=== PATIENT | female | born 1995 | race Two or more races ===

== ENCOUNTER 2019-03-27 13:21 | Emergency (ER) | payer MEDICAID ==
[~2019-03-27] VITALS: Ht 165.1 cm; Wt 59.9 kg
--- NOTE | 2019-03-27 13:55 | NUR ---
Vaginal bleeding x 4 days, worsening today, IV line established on RAC.
[2019-03-27] MEDS: IV NS 0.9% 1,000 ML BAG IV ONE (14:34)
[2019-03-27 14:47] LABS: BASOPHILS % (AUTO) 0.5 % (0.0-2.0); EOSINOPHILS % (AUTO) 1.3 % (0.0-6.0); HEMATOCRIT 43 % (33-45); HEMOGLOBIN 14.8 g/dL (11.5-14.8); LYMPHOCYTES # (AUTO) 1.8 /CMM (0.8-4.8); LYMPHOCYTES % (AUTO) 26.2 % (20.0-44.0); MEAN CORPUSCULAR HGB CONC 35 g/dl (31.0-36.0); MEAN CORPUSCULAR VOLUME 90 fL (82-100); MONOCYTES # (AUTO) 0.4 /CMM (0.1-1.30); MONOCYTES % (AUTO) 5.6 % (2.0-12.0); NEUTROPHILS # (AUTO) 4.6 /CMM (1.8-8.9); NEUTROPHILS % (AUTO) 66.4 % (43.0-81.0); PLATELET COUNT (AUTO) 274 /CMM (150-450); RED BLOOD CELL COUNT(AUTO) 4.75 MIL/uL (4.0-5.2)
[2019-03-27 15:06] LABS: APPEARANCE,URINE CLOUDY (CLEAR); BILIRUBIN,URINE NEGATIVE (NEGATIVE); BLOOD, URINE 3+ Ery/uL (NEGATIVE); COLOR,URINE RED (YELLOW); KETONES,URINE 1+ (NEGATIVE); LEUKOCYTE ESTERASE ,URINE 2+ (NEGATIVE); NITRITE, URINE POSITIVE (NEGATIVE); PROTEIN,URINE 3+ mg/dl (NEGATIVE); UGLUCOSE NEGATIVE (NEGATIVE)
[2019-03-27 15:22] LABS: ALBUMIN 4.1 g/dL (3.4-5.0); BILIRUBIN,DIRECT 0.1 mg/dL (0.0-0.2); BILIRUBIN,TOTAL 0.3 mg/dL (0.2-1.0); CALCIUM, SERUM 9.1 mg/dL (8.5-10.1); CREATININE 0.5 mg/dL (0.6-1.3); POTASSIUM 3.6 mmol/L (3.5-5.1); TOTAL PROTEIN, SERUM 7.5 g/dL (6.4-8.2)
[2019-03-27 15:36] LABS: RBC,URINE TOO NUMEROUS TO COUN /HPF (0-2)
[2019-03-27 15:40] LABS: BACTERIA,URINE Moderate /HPF (None Seen); SQUAMOUS EPITHELIAL CELL,UR Rare /HPF (None Seen); WBC,URINE 21-50 /HPF (0-3)
--- NOTE | 2019-03-27 15:46 | NUR ---
CALLED FOR ULTRA-SOUND TECH, PELVIC EXAM PER JANETT
--- NOTE | 2019-03-27 16:15 | NUR ---
[employer] AT BEDSIDE.
--- NOTE | 2019-03-27 16:49 | NUR ---
PIV removed, Rx provided, Patient discharged to home in stable condition. Written and verbal after care instructions given. Patient verbalizes understanding of instruction.
[2019-03-27 16:51] VITALS: BP 117/57
== END 2019-03-27 16:52 | disposition home or self-care (01) ==
LOC: ER 13:21
DX: O20.9 Hemorrhage in early pregnancy, unspecified (principal); Z3A.15 15 weeks gestation of pregnancy
CPT/HCPCS: 36415; 76805; 80048; 80076; 81001; 84702; 85025; 85730; 87086; 99284; J7030; 81000-TC

== ENCOUNTER 2019-03-28 23:00 | Emergency (ER) ==
[~2019-03-28] VITALS: Ht 160 cm; Wt 54.4 kg
--- NOTE | 2019-03-28 23:50 | NUR ---
BIB SELF. AAOX4. BREATHING EVEN AND UNLABORED. AMBULATORY. C/O LOWER ABDOMINAL PAIN, SHARP AND CONSTANT, 08/21, WITH VAGINAL BLEEDING X 4 DAYS, REPORTS DARK RED BLOOD WITH CLOTS. NO N/V/D. DENIES CP. PT STATES SHE IS HOWEVER SHE DOES NOT KNOW HOW FAR. PT TO ER BED 10. AWAITING MD LIANG AND ORDERS.
--- NOTE | 2019-03-28 23:50 | NUR ---
Note gonzález in EDM - 03/29/19 at 0006 by JAQUELINE BIB SELF. AAOX4. BREATHING EVEN AND UNLABORED. AMBULATORY. C/O LOWER ABDOMINAL PAIN, SHARP AND CONSTANT, 08/21. NO N/V/D. DENIES CP. PT STATES SHE IS HOWEVER SHE DOES NOT KNOW HOW FAR. PT TO ER BED 10. AWAITING MD LIANG AND ORDERS.
--- NOTE | 2019-03-28 23:50 | NUR ---
URINE COLLECTED SENT TO LAB
[2019-03-29 00:13] LABS: BASOPHILS % (AUTO) 0.4 % (0.0-2.0); EOSINOPHILS % (AUTO) 1.2 % (0.0-6.0); HEMATOCRIT 37 % (33-45); HEMOGLOBIN 12.7 g/dL (11.5-14.8); LYMPHOCYTES # (AUTO) 2.2 /CMM (0.8-4.8); LYMPHOCYTES % (AUTO) 20.8 % (20.0-44.0); MEAN CORPUSCULAR HGB CONC 35 g/dl (31.0-36.0); MEAN CORPUSCULAR VOLUME 91 fL (82-100); MONOCYTES # (AUTO) 0.5 /CMM (0.1-1.30); NEUTROPHILS # (AUTO) 7.6 /CMM (1.8-8.9); NEUTROPHILS % (AUTO) 72.6 % (43.0-81.0); PLATELET COUNT (AUTO) 274 /CMM (150-450); RED BLOOD CELL COUNT(AUTO) 4.04 MIL/uL (4.0-5.2); WHITE BLOOD COUNT (AUTO) 10.5 K/uL (4.3-11.0)
[2019-03-29 00:15] LABS: APPEARANCE,URINE Cloudy (CLEAR); BILIRUBIN,URINE Negative (NEGATIVE); BLOOD, URINE Large Ery/uL (NEGATIVE); COLOR,URINE Brown (YELLOW); KETONES,URINE Trace (NEGATIVE); LEUKOCYTE ESTERASE ,URINE Negative (NEGATIVE); NITRITE, URINE Negative (NEGATIVE); PROTEIN,URINE 30 mg/dl (NEGATIVE); UGLUCOSE Negative (NEGATIVE); UROBILINOGEN,URINE 0.2 EU/dL (0.2)
--- NOTE | 2019-03-29 00:15 | NUR ---
PT MOVED TO BED 16 FOR US. US NOTIFIED FOR PROCEDURE
[2019-03-29 00:23] LABS: BACTERIA,URINE None seen /HPF (None Seen); CALCIUM, SERUM 8.2 mg/dL (8.5-10.1); CREATININE 0.5 mg/dL (0.6-1.3); POTASSIUM 3.6 mmol/L (3.5-5.1); RBC,URINE TOO NUMEROUS TO COUN /HPF (0-2); SQUAMOUS EPITHELIAL CELL,UR Few /HPF (None Seen); WBC,URINE NONE SEEN /HPF (0-3)
[2019-03-29] MEDS ORDERED: MORPHINE SULFATE INJ 2 MG/ML DISP.SYRIN ONE ×2 (00:30→02:02)
[2019-03-29] MEDS ORDERED: MORPHINE SULFATE INJ 2 MG/ML DISP.SYRIN IV ONE ×2 (00:30→02:30)
--- NOTE | 2019-03-29 00:45 | NUR ---
US AT BEDSIDE
--- NOTE | 2019-03-29 01:39 | NUR ---
PT AMBULATED TO BATHROOM WITHOUT ASSISTANCE.
--- NOTE | 2019-03-29 03:04 | NUR ---
Patient discharged to home in stable condition. Written and verbal after care instructions given. Patient verbalizes understanding of instruction.IV removed. Catheter intact and site benign. Pressure and 4x4 applied to site. No bleeding noted. Pt ambulatory with a steady gait
[2019-03-29 03:11] VITALS: BP 132/75
== END 2019-03-29 03:09 | disposition home or self-care (01) ==
LOC: ER 23:06
DX: O03.9 Complete or unspecified spontaneous abortion without complication (principal)
CPT/HCPCS: 36415; 76856; 80048; 81001; 84702; 85025; 85730; 96374; 96376; 99284; J2270 ×2; 81000-TC